=== PATIENT | female | born 1985 | race Asian ===

== ENCOUNTER 2016-06-24 13:58 | Inpatient (IN) | payer MEDICAID, OTHER ==
[~2016-06-24] VITALS: Ht 165.1 cm; Wt 48.7 kg
[2016-06-24] MEDS ORDERED: OLAN10TA3 PO (14:24)
[2016-06-24] MEDS ORDERED: DiphenhydrAMINE HCL 50 MG/ML VIAL IM ONE (15:00)
[2016-06-24 15:07] LABS: BASOPHILS % (AUTO) 0.3 % (0.0-2.0); EOSINOPHILS % (AUTO) 0.8 % (1.0-6.0); HEMATOCRIT 42.9 % (36-46); HEMOGLOBIN 14.2 g/dL (12.0-16.0); LYMPHOCYTES # (AUTO) 1.3 K/uL (1.0-4.8); LYMPHOCYTES % (AUTO) 27.2 % (22.0-44.0); MEAN CORPUSCULAR HEMOGLOBIN 30.9 pg (26.0-34.0); MEAN CORPUSCULAR VOLUME 94 fL (80-100); MONOCYTES # (AUTO) 0.3 K/uL (0.1-1.0); MONOCYTES % (AUTO) 5.5 % (2.0-9.0); NEUTROPHILS # (AUTO) 3.2 K/uL (1.8-7.7); NEUTROPHILS % (AUTO) 66.2 % (40.0-70.0); PLATELET COUNT (AUTO) 215 K/uL (150-450); RED BLOOD CELL COUNT(AUTO) 4.58 MIL/uL (4.00-5.20); RED CELL DISTRIBUTION WIDTH 12.8 % (11.5-14.5); WHITE BLOOD COUNT (AUTO) 4.8 K/uL (4.5-11.0)
[2016-06-24 15:12] LABS: ANION GAP 8 mmol/L (8-16); CALCIUM, TOTAL 9.4 mg/dL (8.8-10.5); CARBON DIOXIDE 31 mmol/L (22-29); CHLORIDE 105 mmol/L (98-107); CREATININE 0.83 mg/dL (0.60-1.30); GLOMERULAR FILTR. RATE CALC > 60 mL/min (>60); POTASSIUM 3.7 mmol/L (3.5-5.1); SODIUM SERUM 144 mmol/L (136-145); UREA NITROGEN, BLOOD 8 mg/dL (7-18)
[2016-06-24] MEDS ORDERED: LORazepam 2 MG TABLET PO PRN (15:15)
[2016-06-24] MEDS ORDERED: ZOLPIDEM TARTRATE 10 MG TABLET PO PRN (15:15)
[2016-06-24 15:16] LABS: ALANINE AMINOTRANSFERASE 22 U/L (12-78); ALBUMIN 4.1 g/dL (3.4-5.0); ASPARTATE AMINOTRANSFERASE 14 U/L (15-37); BILIRUBIN,TOTAL 0.5 mg/dL (0.1-1.0); TOTAL PROTEIN, SERUM 7.7 g/dL (6.4-8.2)
[2016-06-24 17:30] VITALS: BP 127/95
[2016-06-24] MEDS ORDERED: INFLUENZA VIRUS VACCINE QVS 2016-17 (3YR+)/PF 60 MCG/0.5 ML SYRINGE IM ONE (17:45)
[2016-06-25 03:03] VITALS: BP 103/59
[2016-06-25] MEDS: NICOTINE 21 MG/24 HOUR PATCH TD SCH (09:14)
[2016-06-25 16:17] VITALS: BP 109/65
[2016-06-25] MEDS: OLANZapine 7.5 MG TABLET PO SCH (20:13)
[2016-06-26 06:14] VITALS: BP 104/62
[2016-06-26] MEDS: NICOTINE 21 MG/24 HOUR PATCH TD SCH (10:41)
[2016-06-26] MEDS ORDERED: IBUPROFEN 600 MG TABLET PO PRN (14:00)
[2016-06-26] MEDS ORDERED: ACETAMINOPHEN 325 MG TABLET PO PRN (14:00)
[2016-06-26 16:12] VITALS: BP 111/87
[2016-06-26] MEDS: OLANZapine 7.5 MG TABLET PO SCH (20:26)
[2016-06-27] MEDS: NICOTINE 21 MG/24 HOUR PATCH TD SCH (08:46)
[2016-06-27 08:47] VITALS: BP 107/64
[2016-06-27] MEDS ORDERED: OLAN7.5T2 PO (15:17)
[2016-06-27 16:46] VITALS: BP 125/87
== END 2016-06-27 16:05 | disposition home or self-care (01) | DRG 750 ==
LOC: EMS 14:06 → B3A 16:31
PROVIDERS: ADMIT Psychiatry & Neurology Child & Adolescent Psychiatry; ATTEND Psychiatry & Neurology Child & Adolescent Psychiatry
DX: F25.0 Schizoaffective disorder, bipolar type (principal); R45.851 Suicidal ideations; Z91.14 Patient's other noncompliance with medication regimen; I10 Essential (primary) hypertension; F14.90 Cocaine use, unspecified, uncomplicated; F15.90 Other stimulant use, unspecified, uncomplicated; Z71.51 Drug abuse counseling and surveillance of drug abuser; Z88.1 Allergy status to other antibiotic agents; Z79.899 Other long term (current) drug therapy; Z28.21 Immunization not carried out because of patient refusal
CPT/HCPCS: 96372; 99285; G0480; J1200